=== PATIENT | male | born 1970 | race Caucasian/White ===

== ENCOUNTER → 2016-07-06 | Day surgery (SDC) | payer BC ==
[~2016-07-06] MED LIST: BUPIVACAINE/EPINEPHRINE 0.25% PF 30 ML VIAL ONE; KETOROLAC TROMETHAMINE 30 MG/ML (IVP) VIAL IV PUSH ONE; LACTATED RINGER'S 1000 ML INJ 1,000 ML ONE; LIDOCAINE 1%/EPINEPHrine 1:100,000 SOLN 30 ML VIAL ONE; MIDAZOLAM HCL 2 MG/2 ML VIAL ONE; PROPOFOL 200 MG/20 ML AMP IV ONE; ceFAZolin INJ 1,000 MG VIAL ONE
--- NOTE | 2016-07-06 13:29 | TN ---
cc: KURTIS MEREDITH DATE OF SURGERY 07/06/2016 PREOPERATIVE DIAGNOSIS Left carpal tunnel syndrome POSTOPERATIVE DIAGNOSIS Left carpal tunnel syndrome PROCEDURE Open left carpal tunnel release SURGEON Kurtis Meredith MD ANESTHESIA TIVA ESTIMATED BLOOD LOSS Minimal INDICATION This is a 46-year-old male with significant left hand pain. Investigative studies shows evidence of left carpal tunnel entrapment. EMG is positive as well. He presents for surgical treatment. PROCEDURE The patient was brought to the operating room and given limited sedation. The left hand was scrubbed with alcohol followed by Hibiclens and draped sterilely. A time-out was done. Antibiotics were given within a one hour time window. A field block was used with quarter Marcaine and 1% lidocaine with epinephrine. After exsanguination, the tourniquet inflated to 250 mmHg. A longitudinal incision was made in line with a flexed fourth ray. The palmar fascia was opened longitudinally. The transverse carpal ligament was opened. The median nerves were identified and protected. We opened the nerve back to the proximal crease of the flexor retinaculum. This was opened into the palm. The recurrent branch was identified and protected. The tourniquet was let down. Hemostasis was controlled with bipolar cautery. The wound was irrigated and anesthetized. It was then closed with 3-0 nylon in a mattress fashion. The patient was awakened and taken to recovery in satisfactory condition. MD RADHA Olivo/DANIEL /1:18 PM /1:26 PM
== END | disposition home or self-care (01) ==
LOC: ESDC 10:42
PROVIDERS: ATTEND Orthopaedic Surgery Orthopaedic Surgery of the Spine
DX: G56.02 Carpal tunnel syndrome, left upper limb (principal)
CPT/HCPCS: 01810; 64721; J0690; J1885; J2250; J3010; J7120